=== PATIENT | female | born 1980 | race Caucasian/White ===

== ENCOUNTER 2017-09-19 00:38 | Day surgery (SDC) | payer OTHER ==
[2017-09-19] VITALS (10 sets, daily range): BP systolic 117–131; BP diastolic 69–93
[~2017-09-19] VITALS: Ht 165.1 cm; Wt 88.5 kg
[~2017-09-19 00:38] MED LIST: ALB6.7R INH; AMOX-362 PO; AMOX-559 PO; ASCO-182 PO; AZEL205. NS; CALC600T72; CEP500 PO; MULT-1335 PO; ONDA4TAB PO; OXYC-865 PO; PREN-67
[2017-09-19 07:48] LABS: PLATELET COUNT, AUTOMATED 229 K/uL (150-450)
[2017-09-19] MEDS ORDERED: NORMOSOL R SOLN(*) 1000 ML BAG 1,000 ML IV PRN (08:05)
[2017-09-19] MEDS ORDERED: LIDOCAINE/SOD BICARB 8.4% SYR ID ONE (08:05)
[2017-09-19] MEDS ORDERED: ceFAZolin(*) 2GM/D5W 50ML 50 ML IVPB ONE (08:05)
[2017-09-19] MEDS ORDERED: MIDAZOLAM 2 MG/2 ML VIAL IVP PRN (08:05)
[2017-09-19] MEDS ORDERED: FAMOTIDINE 20 MG TAB PO ONE (08:05)
[2017-09-19] MEDS ORDERED: ONDANSETRON 4 MG/2 ML VIAL ONE (08:13)
[2017-09-19] MEDS ORDERED: LIDOCAINE MPF 1% 5 ML VIAL ONE (08:13)
[2017-09-19] MEDS ORDERED: DEXAMETHASONE SOD PHOS 10MG/ML ONE (08:13)
[2017-09-19] MEDS ORDERED: PROPOFOL EMUL(*) 10MG/ML 20 ML 40 ML ONE (08:13)
[2017-09-19] MEDS ORDERED: LIDO/EPI 1% MDV 1:100,000 20ML INFIL ONE (08:30)
[2017-09-19] MEDS ORDERED: MUPIROCIN 2% OINT 22 GM TUBE TP ONE (08:30)
[2017-09-19] MEDS ORDERED: BACITRACIN OINT 15 GM TUBE TP ONE (08:30)
[2017-09-19] MEDS ORDERED: OXYMETAZOLINE SPRAY 15 ML BTL ONE (08:50)
[2017-09-19] MEDS ORDERED: fentaNYL CITR 100 MCG/2 ML AMP ONE ×2 (08:58→09:48)
[2017-09-19] MEDS ORDERED: NS(*) 0.9% 500 ML BAG 500 ML ONE (09:03)
[2017-09-19] MEDS ORDERED: CEFU500T10 PO (09:43)
[2017-09-19] MEDS ORDERED: HYDR-4309 PO (09:44)
[2017-09-19] MEDS ORDERED: APAP/HYDROCODONE 325/5 TAB ONE (09:53)
--- NOTE | 2017-09-20 06:42 | OPERATIVE REPORT 1 ---
EVENT DATE: September 19, 2017 SURGEON: Darrian Germain MD ANESTHESIOLOGIST: Walter John MD ANESTHESIA: LMA PROCEDURE 1. Bilateral maxillary antrostomies. 2. Bilateral anterior ethmoidectomies. PREOPERATIVE DIAGNOSIS 1. Chronic bilateral maxillary sinusitis. 2. Chronic bilateral anterior ethmoidal sinusitis. POSTOPERATIVE DIAGNOSIS 1. Chronic bilateral maxillary sinusitis. 2. Chronic bilateral anterior ethmoidal sinusitis. INDICATIONS Please refer to the preoperative note. DESCRIPTION OF PROCEDURE The patient was positively identified in the preoperative area. She was accompanied there by her . Risks were again explained, including but not limited to bleeding, infection, recurrent sinusitis, injury to the orbit, vision changes, injury to the skull base, cerebrospinal fluid leak and those associated with anesthesia. She acknowledged understanding of those risks. I again reviewed the patients preoperative CT scan. This was notable for opacification of the bilateral maxillary and anterior ethmoid sinuses. The patient was then brought back to the operative suite, laid supine on the operative table, and anesthesia was administered. Once asleep, the patient was positioned, then prepped and draped in usual sterile fashion. Both nasal cavities were decongested with cottonoids containing Afrin solution. I began on the right side. The cottonoids were removed. An endoscope was placed into the nasal cavity. The patients previous maxillary antrostomy was identified. This was widened with backbiting forceps and the microdebrider blade. An anterior ethmoidectomy was then performed. I then proceeded with the contralateral side. In a similar fashion, the cottonoids were removed. The nasal endoscope was introduced. The patients previous maxillary antrostomy was identified. This was widened with backbiting forceps and the microdebrider blade. An anterior ethmoidectomy was then performed. Bilateral NasoPore was placed between the middle turbinate and the lateral nasal wall. The patient was then turned to anesthesia for emergence. ESTIMATED BLOOD LOSS 25 mL. COMPLICATIONS No complications. MTDD
== END 2017-09-19 10:11 | disposition home or self-care (01) ==
LOC: OR 00:38
PROVIDERS: ATTEND Otolaryngology
DX: J32.0 Chronic maxillary sinusitis (principal); J32.2 Chronic ethmoidal sinusitis
CPT/HCPCS: 31254; 31256; 36415; 84703; 85025; J1100; J2001; J2405; J2704; J3010; J7040; J0690

== ENCOUNTER → 2017-12-06 | Outpatient (CLI) | payer OTHER ==
[~2017-12-06] MED LIST changes: +CEF300 PO; +CEFU500T10 PO; +FLUT16SP19; +HYDR-4309 PO
--- NOTE | 2017-12-06 14:41 | RADIOLOGY IMAGING REPORT ---
FACILITY: [facility] [place] PATIENT NAME: Delicia Winn : 1980 MR: [id number] V: [id number] EXAM DATE: ORDERING PHYSICIAN: BUSTER PROCTOR TECHNOLOGIST: [place] [facility] [place] : 1980 Visit/Account:[id number] Date of Sevice: 12/06/2017 Exam type: 3 views of the sinuses History: chronic sinusitis Comparison: CT scan 07/20/2017. Findings: Frontal sinuses are well aerated. No air-fluid levels in the maxillary sinuses. There is some vague soft tissue along the margins of the maxillary sinus which could indicate sinusitis which would mana espond to prior CT scan. This could be clarified with a CT as indicated. Nasal septum is mostly straight. IMPRESSION: 1. Subtle low-density in the maxillary sinuses could represent mucosal thickening. No air-fluid lev els are identified. Report Dictated By: Rojelio Cooper MD at 12/06/2017 2:35 PM Report E-Signed By: Rojelio Cooper MD at 12/06/2017 2:37 PM WSN:[email or web address]
== END ==
LOC: RAD 11:59
PROVIDERS: ATTEND Otolaryngology
DX: J32.0 Chronic maxillary sinusitis (principal)
CPT/HCPCS: 70210

== ENCOUNTER → 2017-12-22 | Outpatient (CLI) | payer OTHER ==
--- NOTE | 2017-12-23 08:31 | RADIOLOGY IMAGING REPORT ---
FACILITY: [facility] - [place] PATIENT NAME: JADA DIXON : [id number] MR: [id number] V: [id number] EXAM DATE: ORDERING PHYSICIAN: JOEY ROGERS TECHNOLOGIST: Yumiko Poole PROCEDURE:BILATERAL DIGITAL SCREENING MAMMOGRAM WITH CAD ASSISTED INTERPRETATION & 3D TOMOSYNTHESIS COMPARISON:None this is the patient's baseline mammogram.. INDICATIONS:SCREENING FINDINGS: Moderately dense fibroglandular tissue is seen throughout the breasts. There is a slight inversion of the Left nipple. The patient states this has been a chronic finding following nursing of 3 babies over a 3 and a half year period. There is no evidence of malignant appearing mass, malignant appearing calcifications or other secondary sign of malignancy in either breast. DIAGNOSTIC CATEGORY 2--BENIGN FINDING. RECOMMENDATIONS: ROUTINE MAMMOGRAM AND CLINICAL EVALUATION. IMPRESSION: BIRADS 2: Benign finding No significant abnormality is seen. Dictated by: Alicia Hayes M.D. on 12/22/2017 at 16:48 Transcribed by: SAI on 12/23/2017 at 8:06 Approved by: Alicia Hayes M.D. on 12/23/2017 at 8:29 [facility]
== END ==
LOC: MAMO 01:22
PROVIDERS: ATTEND Obstetrics & Gynecology
DX: Z12.31 Encounter for screening mammogram for malignant neoplasm of breast (principal)
CPT/HCPCS: 77063; 77067

== ENCOUNTER 2018-08-31 21:10 | Emergency (ER) | payer OTHER ==
[~2018-08-31 21:10] MED LIST changes: -HYDR-4309 PO; +HYDR-653 PO
--- NOTE | 2018-08-31 21:15 | ER Report ---
History and Physical Time Seen By MD: 21:12 HPI/ROS CHIEF COMPLAINT: Left flank pain HISTORY OF PRESENT ILLNESS: 38-year-old female presents ambulatory to the ER complaining of severe left flank pain. She's having some urinary urgency is but unable to go. Patient notes no fever or chills. She denies blood in her urine. She denies . She does have a history of ovarian cysts. But she states this feels different. She notes the pain is in her left lower abdomen. REVIEW OF SYSTEMS: Respiratory: No cough, no dyspnea. Cardiovascular: No chest pain, no palpitations. Gastrointestinal: As above Musculoskeletal: As above Allergies: Coded Allergies: No Known Drug Allergies (Unverified , 08/31/18) Home Meds Active Scripts Tamsulosin Hcl (FLOMAX) 0.4 Mg Cap.er.24h, 0.4 MG PO QHS for ureteral relaxation, #10 CAP Prov:FARIDAANDREW DO 08/31/18 Ondansetron Hcl (ZOFRAN) 4 Mg Tablet, 4 MG PO Q6H PRN for NAUSEA/VOMITING, #15 Prov:ANDREW IQBAL DO 08/31/18 Hydrocodone Bit/Acetaminophen (NORCO 5-325 TABLET) 1 Each Tablet, 1-2 TAB PO Q4- 6H PRN for PAIN, #20 TAB Prov:ANDREW IQBAL Yolanda BEE 08/31/18 Reported Medications Multivitamin With Minerals (MULTIPLE VITAMIN) 1 Each Tablet, 1 EACH PO DAILY, TAB 09/12/17 Ascorbic Acid (VITAMIN C) 500 Mg Tablet, 500 MG PO DAILY, TAB 09/12/17 Discontinued Reported Medications Albuterol Sulfate (PROVENTIL HFA) 6.7 Gm Inh, 1-2 PUFF INH PRN, INH 09/12/17 Discontinued Scripts Fluticasone Prop 50 Mcg Ns (FLONASE 50 MCG NS) 16 Gm [place].susp, 2 SPRAYS NA QDAY for 30 Days, #1 BOT 11 Refills Prov:BUSTER PROCTOR JR, MD 10/10/17 Past Medical/Surgical History Past Medical History Cardiovascular: Reports hx of: hypertension Respiratory: Reports hx of: asthma Past Surgical History HEENT: Reports hx of: sinus surgery elbow Gastrointestinal: Reports hx of: cholecystectomy hernia repair Reviewed Nurses Notes: Yes Old Medical Records Reviewed: Yes Hx Smoking: No Smoking Status: Never Smoker Hx Substance Use Disorder: No Hx Alcohol Use: No Constitutional Vital Sign - Last 24 Hours 08/31/18 08/31/18 08/31/18 08/31/18 21:15 21:20 21:25 21:30 Temp 98.3 Pulse 97 100 95 ??? Resp 18 B/P (MAP) 141/112 88/56 (67) Pulse Ox 92 92 96 83 O2 Delivery Room Air 08/31/18 08/31/18 08/31/18 08/31/18 21:35 21:36 21:40 22:06 Pulse 69 84 B/P (MAP) 113/68 (83) 108/101 (103) Pulse Ox 92 93 08/31/18 08/31/18 08/31/18 08/31/18 22:10 22:15 22:20 22:25 Pulse 87 80 69 72 Pulse Ox 95 93 96 97 08/31/18 22:30 Pulse 93 B/P (MAP) 122/85 (97) Pulse Ox 97 Intake and Output 08/31/18 08/31/18 09/01/18 15:00 23:00 07:00 Intake Total 1000 ml Balance 1000 ml Physical Exam Vital signs stable, afebrile, pulse ox normal General Appearance: The patient is alert, has no immediate need for airway protection and no current signs of toxicity. Moderate distress, slightly pale appearing, restless Eyes: Pupils equal and round no injection. Respiratory: Chest is non tender, lungs are clear to auscultation. Cardiac: regular rate and rhythm Gastrointestinal: Abdomen is soft and non tender, no masses, bowel sounds normal. Positive left CVA tenderness Musculoskeletal: Neck: Neck is supple and non tender. Extremities have full range of motion and are non tender. Skin: No rashes or lesions. DIFFERENTIAL DIAGNOSIS: After history and physical exam differential diagnosis was considered for flank pain including but not limited to musculoskeletal causes, kidney stone, pyelonephritis, shingles, and intra-abdominal causes such as diverticulitis and appendicitis. Medical Decision Making Data Points Result Diagram: 08/31/18211908/31/182119 Laboratory Hematology Test 08/31/18 21:13 08/31/18 21:20 Urine Color Yellow Urine Clarity Slightly-cloudy Urine pH 5.0 pH (4.8-9.5) Urine Specific [place] 1.021 Urine Protein 30 mg/dL (NEGATIVE) Urine Glucose (UA) Negative mg/dL (NEGATIVE) Urine Ketones Negative mg/dL (NEGATIVE) Urine Blood Large (NEGATIVE) Urine Nitrite Negative (NEGATIVE) Urine Bilirubin Negative (NEGATIVE) Urine Urobilinogen Negative mg/dL (0.2-1.9) Urine Leukocyte Esterase Negative (NEGATIVE) Urine RBC 1231 /HPF (0-2/HPF) Urine WBC 2 /HPF (0-5/HPF) Urine Squamous Epithelial Cells Many /LPF (</=FEW) Urine Bacteria Negative /HPF (NONE-FEW) Urine Mucus None /HPF (NONE-FEW) Urine Yeast (Budding) Few /HPF Urine HCG, Qualitative Negative (NEGATIVE) Red Blood Count 5.07 M/uL (4.17-5.56) Mean Corpuscular Volume 84.9 fL (80.0-96.0) Mean Corpuscular Hemoglobin 29.4 pg (26.0-33.0) Mean Corpuscular Hemoglobin Concent 34.6 g/dL (32.0-36.0) Red Cell Distribution Width 12.6 % (11.5-14.5) Mean Platelet Volume 8.6 fL (7.2-11.1) Neutrophils (%) (Auto) 60.1 % (39.4-72.5) Lymphocytes (%) (Auto) 31.0 % (17.6-49.6) Monocytes (%) (Auto) 5.9 % (4.1-12.4) Eosinophils (%) (Auto) 2.4 % (0.4-6.7) Basophils (%) (Auto) 0.6 % (0.3-1.4) Nucleated RBC Relative Count (auto) 0.0 /100WBC Neutrophils # (Auto) 8.0 K/uL (2.0-7.4) Lymphocytes # (Auto) 4.1 K/uL (1.3-3.6) Monocytes # (Auto) 0.8 K/uL (0.3-1.0) Eosinophils # (Auto) 0.3 K/uL (0.0-0.5) Basophils # (Auto) 0.1 K/uL (0.0-0.1) Nucleated RBC Absolute Count (auto) 0.00 K/uL Sodium Level 138 mmol/L (137-145) Potassium Level 3.9 mmol/L (3.5-5.0) Chloride Level 104 mmol/L (98-107) Carbon Dioxide Level 22 mmol/L (22-31) Blood Urea Nitrogen 21 mg/dl (7-18) Creatinine 1.00 mg/dl (0.52-1.04) Glomerular Filtration Rate Calc > 60.0 Random Glucose 135 mg/dl (75-110) Calcium Level 9.2 mg/dl (8.4-10.2) Total Bilirubin 0.3 mg/dl (0.2-1.3) Aspartate Amino Transf (AST/SGOT) 26 U/L (0-35) Alanine Aminotransferase (ALT/SGPT) 28 U/L (0-56) Alkaline Phosphatase 66 U/L (0-126) Total Protein 7.6 g/dl (6.3-8.2) Albumin 4.3 g/dl (3.5-5.0) Amylase Level 68 U/L (0-110) Lipase 153 U/L (23-300) Chemistry Test 08/31/18 21:13 08/31/18 21:20 Urine Color Yellow Urine Clarity Slightly-cloudy Urine pH 5.0 pH (4.8-9.5) Urine Specific [place] 1.021 Urine Protein 30 mg/dL (NEGATIVE) Urine Glucose (UA) Negative mg/dL (NEGATIVE) Urine Ketones Negative mg/dL (NEGATIVE) Urine Blood Large (NEGATIVE) Urine Nitrite Negative (NEGATIVE) Urine Bilirubin Negative (NEGATIVE) Urine Urobilinogen Negative mg/dL (0.2-1.9) Urine Leukocyte Esterase Negative (NEGATIVE) Urine RBC 1231 /HPF (0-2/HPF) Urine WBC 2 /HPF (0-5/HPF) Urine Squamous Epithelial Cells Many /LPF (</=FEW) Urine Bacteria Negative /HPF (NONE-FEW) Urine Mucus None /HPF (NONE-FEW) Urine Yeast (Budding) Few /HPF Urine HCG, Qualitative Negative (NEGATIVE) White Blood Count 13.3 k/uL (4.5-11.0) Red Blood Count 5.07 M/uL (4.17-5.56) Hemoglobin 14.9 g/dL (12.0-16.0) Hematocrit 43.1 % (34.0-47.0) Mean Corpuscular Volume 84.9 fL (80.0-96.0) Mean Corpuscular Hemoglobin 29.4 pg (26.0-33.0) Mean Corpuscular Hemoglobin Concent 34.6 g/dL (32.0-36.0) Red Cell Distribution Width 12.6 % (11.5-14.5) Platelet Count 264 K/uL (150-450) Mean Platelet Volume 8.6 fL (7.2-11.1) Neutrophils (%) (Auto) 60.1 % (39.4-72.5) Lymphocytes (%) (Auto) 31.0 % (17.6-49.6) Monocytes (%) (Auto) 5.9 % (4.1-12.4) Eosinophils (%) (Auto) 2.4 % (0.4-6.7) Basophils (%) (Auto) 0.6 % (0.3-1.4) Nucleated RBC Relative Count (auto) 0.0 /100WBC Neutrophils # (Auto) 8.0 K/uL (2.0-7.4) Lymphocytes # (Auto) 4.1 K/uL (1.3-3.6) Monocytes # (Auto) 0.8 K/uL (0.3-1.0) Eosinophils # (Auto) 0.3 K/uL (0.0-0.5) Basophils # (Auto) 0.1 K/uL (0.0-0.1) Nucleated RBC Absolute Count (auto) 0.00 K/uL Glomerular Filtration Rate Calc > 60.0 Calcium Level 9.2 mg/dl (8.4-10.2) Total Bilirubin 0.3 mg/dl (0.2-1.3) Aspartate Amino Transf (AST/SGOT) 26 U/L (0-35) Alanine Aminotransferase (ALT/SGPT) 28 U/L (0-56) Alkaline Phosphatase 66 U/L (0-126) Total Protein 7.6 g/dl (6.3-8.2) Albumin 4.3 g/dl (3.5-5.0) Amylase Level 68 U/L (0-110) Lipase 153 U/L (23-300) Urinalysis Test 08/31/18 21:13 Urine Color Yellow Urine Clarity Slightly-cloudy Urine pH 5.0 pH (4.8-9.5) Urine Specific [place] 1.021 Urine Protein 30 mg/dL (NEGATIVE) Urine Glucose (UA) Negative mg/dL (NEGATIVE) Urine Ketones Negative mg/dL (NEGATIVE) Urine Blood Large (NEGATIVE) Urine Nitrite Negative (NEGATIVE) Urine Bilirubin Negative (NEGATIVE) Urine Urobilinogen Negative mg/dL (0.2-1.9) Urine Leukocyte Esterase Negative (NEGATIVE) Urine RBC 1231 /HPF (0-2/HPF) Urine WBC 2 /HPF (0-5/HPF) Urine Squamous Epithelial Cells Many /LPF (</=FEW) Urine Bacteria Negative /HPF (NONE-FEW) Urine Mucus None /HPF (NONE-FEW) Urine Yeast (Budding) Few /HPF Urine HCG, Qualitative Negative (NEGATIVE) EKG/Imaging Imaging Results: CT scan of the abdomen and pelvis without IV contrast was obtained. The results of the study are EXAMINATION: CT ABDOMEN AND PELVIS WITHOUT CONTRAST COMPARISON: None. HISTORY: Left flank pain with microhematuria. PROCEDURE: Multiplanar noncontrast CT of the abdomen and pelvis. One of the following dose optimization techniques was utilized in the performance of this exam: Automated exposure control; adjustment of the mA and/or kV according to the patient's size; or use of an iterative reconstruction technique. Specific details can be referenced in the facility's radiology CT exam operational policy. FINDINGS: Evaluation of the solid and viscus parenchymal organs and vascular structures is limited without the benefit of IV contrast. Visualized thorax: Negative. Liver: Noncontrast imaging of the visualized liver is within normal limits. Gallbladder and biliary system: Cholecystectomy. No bile duct dilation. Spleen: Negative. Pancreas: Noncontrast imaging of the pancreas is within normal limits. Adrenal glands: Negative. Kidneys and bladder: Left kidney asymmetric mild edema, perinephric stranding, and hydronephrosis due to a distal ureter 4 mm stone less than 1 cm from the ureterovesical junction. No other radiopaque urolithiasis on the left. There are a few punctate nonobstructing stones in the right kidney. No right-sided radiopaque ureteral stone or hydronephrosis. Urinary bladder is unremarkable. Vessels: Within normal limits. Bowel and mesentery: Stomach, small bowel, and appendix are unremarkable. Minimal stool in the colon. No bowel or mesenteric inflammation. Pelvic organs: Negative. Lymph nodes: No adenopathy. Free air/free fluid: None. Abdominal wall and osseous structures: Negative. IMPRESSION: 1. Left-sided mild obstructive uropathy due to a 4 mm ureteral stone less than 1 cm from the ureterovesical junction. 2. Bilateral punctate nonobstructing nephrolithiasi The study was read by the radiologist. I viewed the images myself on the PACS system. ED Course/Re-evaluation Clinical Indication for ER IV: Hydration, IV Access ED Course Patient was admitted to an examination room. H&P was done. The dental diagnoses was considered. On clinical examination, patient appears to be having acute renal colic. There is a family history of kidney stones. Patient states the pains are worse than her labor pains. Patient's treated with IV fluid hydration, Zofran, and fentanyl 50 g. Her urinalysis returns with gross hematuria 1200 white blood cells per high powered field. A CT abdomen and pelvis without IV contrast is ordered. It shows hydronephrosis on the left and a 4 mm stone down near the UVJ. Patient's pain returns after coming back from CT scan. She's given Dilaudid a half milligram IV with improvement of her pain. She'll be discharged home on Lortab, Flomax, Zofran, and ibuprofen. She is given information to follow up with Dr. Hicks or Dr. Nails if unimproved in 2-5 days. Decision to Disposition Date: Aug 31, 2018 Decision to Disposition Time: 21:58 Depart Departure Latest Vital Signs Vital Signs Date Time Temp Pulse Resp B/P (MAP) Pulse Ox O2 Delivery O2 Flow Rate FiO2 08/31/18 22:30 93 122/85 (97) 97 08/31/18 21:15 98.3 18 Room Air Impression: Primary Impression: Renal colic on left side Condition: Improved Disposition: HOME OR SELF-CARE Referrals: MILVIA NAILS MD, LYLE MD [facility] Tamsulosin Hcl (FLOMAX) 0.4 Mg Cap.er.24h 0.4 MG PO QHS for ureteral relaxation, #10 CAP Prov: ANDREW IQBAL DO 08/31/18 Ondansetron Hcl (ZOFRAN) 4 Mg Tablet 4 MG PO Q6H PRN for NAUSEA/VOMITING, #15 Prov: ANDREW IQBAL DO 08/31/18 Hydrocodone Bit/Acetaminophen (NORCO 5-325 TABLET) 1 Each Tablet 1-2 TAB PO Q4-6H PRN for PAIN, #20 TAB Prov: ANDREW IQBAL DO 08/31/18 Patient Instructions: Kidney Stones (ED) Additional Instructions: Take ibuprofen 200 mg 3-4 tablets 3 times a day with food Drink plenty of fluids Follow-up with urology if unimproved in 3-5 days Return to the ER for any worsening, especially severe pain, uncontrolled vomiting or fever ANDREW IQBAL DO Aug 31, 2018 21:15
[2018-08-31] MEDS ORDERED: NS(*) 0.9% 1000 ML BAG 1,000 ML IV ONE (21:18)
[2018-08-31] MEDS ORDERED: fentaNYL CITR 100 MCG/2 ML AMP IVP ONE (21:20)
[2018-08-31] MEDS ORDERED: ONDANSETRON 4 MG/2 ML VIAL IVP ONE (21:20)
[2018-08-31 21:35] LABS: PLATELET COUNT, AUTOMATED 264 K/uL (150-450)
[2018-08-31] MEDS ORDERED: ONDA4TAB97 PO (22:02)
[2018-08-31] MEDS ORDERED: HYDR-653 PO (22:02)
[2018-08-31] MEDS ORDERED: TAMS0.4C25 PO (22:02)
[2018-08-31] MEDS ORDERED: HYDROMORPHONE HCL 1 MG/ML SYRINGE IVP ONE (22:10)
--- NOTE | 2018-08-31 22:27 | RADIOLOGY IMAGING REPORT ---
FACILITY: [facility] PATIENT NAME: Delicia Winn : 1980 MR: [id number] V: [id number] EXAM DATE: ORDERING PHYSICIAN: ANDREW IQBAL TECHNOLOGIST: [place] [facility] [place]: Delicia Winn : 1980 Visit/Account:[id number] Date of Sevice: 08/31/2018 EXAMINATION: CT ABDOMEN AND PELVIS WITHOUT CONTRAST COMPARISON: None. HISTORY: Left flank pain with microhematuria. PROCEDURE: Multiplanar noncontrast CT of the abdomen and pelvis. One of the following dose optimizati on techniques was utilized in the performance of this exam: Automated exposure control; adjustment of the mA and/or kV according to the patient's size; or use of an iterative reconstruction technique. Specific details can be referenced in the facility's radiology CT exam operational policy. FINDINGS: Evaluation of the solid and viscus parenchymal organs and vascular structures is limited wi thout the benefit of IV contrast. Visualized thorax: Negative. Liver: Noncontrast imaging of the visualized liver is within normal limits. Gallbladder and biliary system: Cholecystectomy. No bile duct dilation. Spleen: Negative. Pancreas: Noncontrast imaging of the pancreas is within normal limits. Adrenal glands: Negative. Kidneys and bladder: Left kidney asymmetric mild edema, perinephric stranding, and hydronephrosis due to a distal ureter 4 mm stone less than 1 cm from the ureterovesical junction. No other radiopaque u rolithiasis on the left. There are a few punctate nonobstructing stones in the right kidney. No right -sided radiopaque ureteral stone or hydronephrosis. Urinary bladder is unremarkable. Vessels: Within normal limits. Bowel and mesentery: Stomach, small bowel, and appendix are unremarkable. Minimal stool in the colon. No bowel or mesenteric inflammation. Pelvic organs: Negative. Lymph nodes: No adenopathy. Free air/free fluid: None. Abdominal wall and osseous structures: Negative. IMPRESSION: 1. Left-sided mild obstructive uropathy due to a 4 mm ureteral stone less than 1 cm from the ureterov esical junction. 2. Bilateral punctate nonobstructing nephrolithiasis. Report Dictated By: Jovanny Alarcon MD at 08/31/2018 10:19 PM Report E-Signed By: Jovanny Alarcon MD at 08/31/2018 10:23 PM WSN:[id number]
[2018-08-31 22:30] VITALS: BP 122/85
[2018-08-31] MEDS ORDERED: ONDANSETRON 4 MG ODT TH SL ONE (22:40)
[2018-08-31] MEDS ORDERED: ACET/HYDROC 5/325MG TH ER ONLY 2 TAB/BOTTLE PO ONE ×2 (22:40)
[2018-08-31] MEDS ORDERED: TAMSULOSIN HCL 0.4 MG CAP PO ONE (23:00)
== END 2018-08-31 23:05 | disposition home or self-care (01) ==
LOC: ER 21:13
DX: N13.2 Hydronephrosis with renal and ureteral calculous obstruction (principal)
CPT/HCPCS: 74176; 81001; 81025; 82150; 83690; 85025; 96361; 96374; 96375; 99284; J1170; J2405; J3010; J7030; S0119; 82040; 82247; 82310; 82374; 82435; 82565; 82947; 84075; 84132; 84155; 84295; 84450; 84460; 84520

== ENCOUNTER → 2018-09-20 | Outpatient (REF) | payer OTHER ==
[~2018-09-20] MED LIST changes: +ONDA4TAB97 PO; +TAMS0.4C25 PO
== END ==
LOC: ZZSENDIN 13:25
PROVIDERS: ATTEND Urology
DX: N20.0 Calculus of kidney (principal)
CPT/HCPCS: 82365; 88300